=== PATIENT | female | born 1990 | race Caucasian/White ===

== ENCOUNTER → 2020-10-21 | Outpatient (CLI) | payer OTHER ==
--- NOTE | 2020-10-21 12:52 | US ---
EXAMINATION TYPE: US OB >= 14 wk fetus DATE OF EXAM: 10/21/2020 COMPARISON: None CLINICAL HISTORY: Z36 CONFIRM DATES TECHNIQUE: Transabdominal (TA) GESTATIONAL AGE / DATING Physician Established: (15 weeks/1 days) EDC: 04/13/2021 Dates by LMP: (15 weeks/1 days) EDC: 04/13/2021 Dates by First Scan: No previous this is first scan Dates by Current Scan: (15 weeks/4 days) EDC: 04/10/2021 SURVEY IUP: Single PLACENTA: Anterior PREVIA: Low Lying measuring 1.7 cm from os JACE: Too early CERVICAL LENGTH (transabdominal: norm > 3.0cm): 4.1 cm BIOMETRY PRESENTATION: Vertex LIE: Longitudinal BPD: 3.1 cm 15 weeks / 6 days HC: 11.3 cm 15 weeks / 4 days AC: 9.7 cm 15 weeks / 6 days FL: 1.7 cm 15 weeks / 0 days ESTIMATED WEIGHT IN GRAMS: 123 grams ESTIMATED WEIGHT IN LBS/OZ: 0 lbs. 4 oz. WEIGHT PERCENTAGE BASED ON ESTABLISHED DATES: 56% HC/AC: 1.17 Normal FL/AC: 17% Normal HEART RATE: 155 bpm RHYTHM: Normal Viable IUP, measurements consistent with dates. Hypoechoic uterine mass, possible fibroid, visualized measuring 1.6 x 1.2 x 1.3 cm. Low lying placenta This is not an anatomic survey. IMPRESSION: 1. Single, live intrauterine measuring 15 weeks and 4 days by sonographic criteria. 2. Low lying placenta. 3. Possible uterine leiomyoma.
== END | disposition home or self-care (01) ==
LOC: RADUSWWP 11:06
PROVIDERS: ATTEND Obstetrics & Gynecology
DX: O44.42 Low lying placenta NOS or without hemorrhage, second trimester (principal); Z3A.15 15 weeks gestation of pregnancy
CPT/HCPCS: 76805

== ENCOUNTER 2021-03-01 05:14 | Outpatient (CLI) | payer OTHER ==
[2021-03-01 05:26] LABS: Glucose,Whole Blood 144 mg/dL (75-99)
[2021-03-01] MEDS: LACTATED RINGERS 1,000 ML IV SCH ×2 (05:40→06:19)
[2021-03-01 05:50] LABS: Appearance,Urine Clear (Clear); Bacteria,Urine Rare /hpf; Bilirubin,Urine Negative (Negative); Blood,Urine Negative (Negative); Color,Urine Light Yellow; Glucose,Urine (UA) 3+ (Negative); Hyaline Casts,Urine 3 /lpf (0-2); Ketones,Urine 1+ (Negative); Leukocyte Esterase,Urine Large (Negative); Mucus,Urine Rare /hpf; Nitrite,Urine Negative (Negative); Protein,Urine Negative (Negative); RBC,Urine <1 /hpf (0-5); Specific Gravity,Urine 1.015 (1.001-1.035); Squamous Epithelial Cell,Urine 4 /hpf (0-4); Urobilinogen,Urine <2.0 mg/dL (<2.0); WBC,Urine 13 /hpf (0-5)
[2021-03-01 07:13] VITALS: BP 132/71; PULSE 68; RESP 16; TEMP 98
--- NOTE | 2021-03-01 11:52 | P.MSEPDOC ---
Presenting Problems - Arrival Data Date of Arrival on Unit: 03/01/21 Time of Arrival on Unit: 05:14 Mode of Transport: Wheelchair - Complaint OB-Reason for Admission/Chief Complaint: Possible Onset of Labor Comment: Contractions every 1 minute since 0300 Medical History - Information : 4 Para: 3 Term: 2 : 1 Abortions: Spontaneous or Elective: 0 Number of Living Children: 2 - Gestational Age Gestational Age by YONATHAN (wks/days): 33 Weeks and 6 Days - History Complications: Prior Review of Systems - Review of Systems Constitutional: No problems Breast: No problems ENT: No problems Cardiovascular: No problems Respiratory: No problems Gastrointestinal: No problems Genitourinary: No problems Musculoskeletal: No problems Neurological: No problems Skin: No problems Vital Signs - Temperature Temperature: 98 F Temperature Source: Temporal Artery Scan - Pulse Right Brachial Pulse Rate: 68 Pulse Assessment Method: Automatic Cuff - Respirations Respiratory Rate: 16 Oxygen Delivery Method: Room Air O2 Sat by Pulse Oximetry: 100 - Blood Pressure Right Arm Blood Pressure: 132/71 Blood Pressure Mean: 91 Blood Pressure Source: Automatic Cuff Medical Screen Scoring - Cervical Exam Dilation (cm): 1 Effacement (%): 0 Station: -2 Membranes: Intact - Uterine Contractions Frequency From (mins): 1 Frequency To (mins): 3 Duration From (seconds): 60 Duration To (seconds): 100 Intensity: Moderate Resting: Soft to palpation - Assessment - Baby A Baseline FHR: 135 Heart Rate - NICHD Category: Category I (Normal) Physician Notification - Physician Notified Physician Notified Date: 03/01/21 Physician Notified Time: 05:27 Physician: Kylee Lamar New Order Received: Yes - Notification Comment Comment: IV hydrate, send UA. 0626 culture urine, d/c home at second bag of LR Maternal Triage Index - Maternal Triage Index Presenting for scheduled procedure w/no complaint: No - Stat/Priority 1 Stat Priority 1: No - Urgent/Priority 2 Urgent Priority 2: Yes Provider Notified: Kylee Lamar Provider Notified Time: 05:27 Criteria Met for Priority 2: Contractions every 1-3 minutes Disposition - Disposition OB Disposition: Discharge to home, Written follow up instructions reviewed Discharge Date: 03/01/21 Discharge Time: 07:13 I agree with the RN Medical Screening Exam: Yes Case reviewed; plan agreed upon as documented in EMR&OBIX.: Yes Diagnosis: FALSE LABOR BEFORE 37 COMPLETED WEEKS OF GEST, THIRD TRI
== END 2021-03-01 07:13 | disposition home or self-care (01) ==
LOC: FBPOP 05:14
PROVIDERS: ATTEND Obstetrics & Gynecology
DX: O47.03 False labor before 37 completed weeks of gestation, third trimester (principal); Z3A.33 33 weeks gestation of pregnancy
CPT/HCPCS: 59025; 96360; 96361; 81001; 87086; G0463; 99214

== ENCOUNTER 2021-03-11 14:52 | Outpatient (CLI) | payer OTHER ==
[2021-03-11 16:23] VITALS: BP 141/70; PULSE 76; RESP 16; TEMP 97.1
--- NOTE | 2021-03-11 16:49 | US ---
EXAMINATION TYPE: US OB BPP wo non-stress DATE OF EXAM: 03/11/2021 COMPARISON: NONE CLINICAL HISTORY: variable decelerations in office. abnormal NST EXAM PERFORMED: Transabdominal (TA) BPP PARAMETERS: PRESENTATION: Vertex HEART RATE: 130 bpm RHYTHM: Normal JACE: 14.8 DIAPHRAGM IMAGED: Yes BPP SCORIN. Breathin (1 episode of breathing of 30 second duration in 30 minutes of scanning time) 2. Movement: 2 (at least 3 discrete body movements in 30 minutes) 3. Tone: 2 (1 episode of active flexion/extension of limb) 4. JACE: 2 (JACE index > 5cm) TOTAL SCORE: 8 / 8 Results given to L&D at time of exam
--- NOTE | 2021-03-11 16:51 | US ---
EXAMINATION TYPE: US OB >= 14 wk fetus DATE OF EXAM: 03/11/2021 COMPARISON: US CLINICAL HISTORY: variable delerations in office For growth and JACE TECHNIQUE: Transabdominal (TA) GESTATIONAL AGE / DATING Physician Established: (35 weeks/2 days) EDC: 04/13/2021 Dates by LMP: Unknown Dates by First Scan: (35 weeks/5 days) EDC: 04/10/2021 Dates by Current Scan: (36 weeks/2 days) EDC: 04/06/2021 SURVEY IUP: Single PLACENTA: Anterior PREVIA: No Previa JACE: 14.7 cm Normal CERVICAL LENGTH (transabdominal: norm > 3.0cm): 3.1 cm BIOMETRY PRESENTATION: Vertex BPD: 8.7 cm 35 weeks / 0 days HC: 32.3 cm 36 weeks / 4 days AC: 33.2 cm 37 weeks / 1 days FL: 7.0 cm 36 weeks / 1 days ESTIMATED WEIGHT IN GRAMS: 2963 grams ESTIMATED WEIGHT IN LBS/OZ: 6 lbs. 9 oz. WEIGHT PERCENTAGE BASED ON ESTABLISHED DATES: 82% HC/AC: 0.97 Normal FL/AC: 21 Normal HEART RATE: 128 bpm RHYTHM: Normal Results given to L&D at time of exam IMPRESSION: 1. Single intrauterine gestation estimated at 36 weeks 2 days gestation based on current ultrasound m easurements. Cardiac activity measures 128 bpm on this exam. 2. Estimated weight based on current ultrasound measurements is 2963 g
== END 2021-03-11 16:13 | disposition home or self-care (01) ==
LOC: FBPOP 14:52
PROVIDERS: ATTEND Obstetrics & Gynecology
DX: O24.419 Gestational diabetes mellitus in pregnancy, unspecified control (principal); Z3A.35 35 weeks gestation of pregnancy
CPT/HCPCS: 59025; 76805; 76819

== ENCOUNTER 2021-03-14 15:13 | Outpatient (CLI) | payer OTHER ==
[2021-03-14 16:10] VITALS: BP 129/72; PULSE 80; RESP 18; TEMP 97.8
== END 2021-03-14 16:00 | disposition home or self-care (01) ==
LOC: FBPOP 15:13
PROVIDERS: ATTEND Obstetrics & Gynecology
DX: O24.419 Gestational diabetes mellitus in pregnancy, unspecified control (principal); Z3A.35 35 weeks gestation of pregnancy
CPT/HCPCS: 59025; G0463; 99213

== ENCOUNTER 2021-04-01 10:26 | Inpatient (IN) | payer OTHER ==
[2021-04-01] MEDS ORDERED: CARBOPROST TROMETHAMINE 250 MCG/ML 1 ML AMP IM PRN (10:41)
[2021-04-01] MEDS ORDERED: LIDOCAINE 0.5% (PF) 5 MG/ML (50 ML SDV) SQ PRN (10:41)
[2021-04-01] MEDS ORDERED: TERBUTALINE 1 MG/ML VIAL SQ PRN (10:41)
[2021-04-01] MEDS ORDERED: OXYTOCIN 10 UNIT/ML 1 ML VIAL IM PRN (10:41)
[2021-04-01] MEDS ORDERED: METHYLERGONOVINE 0.2 MG/ML 1 ML AMP IM PRN (10:41)
[2021-04-01] MEDS ORDERED: OXYTOCIN 30 UNITS/500 ML NS 30 UNIT in SALINE 1 500ML.BAG IV SCH (10:45)
[2021-04-01 11:03] LABS: Glucose,Whole Blood 93 mg/dL (75-99)
--- NOTE | 2021-04-01 11:19 | US ---
EXAMINATION TYPE: US OB >= 14 wk fetus DATE OF EXAM: 04/01/2021 COMPARISON: 03/11/2021 CLINICAL HISTORY: 31-year-old female Position. Patient in labor needed position, TECHNIQUE: Transabdominal (TA) FINDINGS: GESTATIONAL AGE / DATING Physician Established: (38 weeks/2 days) EDC: 04/13/2021 SURVEY BIOMETRY PRESENTATION: cephalic LIE: Longitudinal HEART RATE: 145 bpm RHYTHM: Normal Tech findings reported to patient's RN at exam's end. IMPRESSION: Cephalic presentation.
[2021-04-01] MEDS: LACTATED RINGERS 1,000 ML IV SCH ×3 (11:26→15:53)
[2021-04-01] MEDS ORDERED: ROPIVACAINE 100 MG, fentaNYL (PF). 200 MCG in SODIUM CHLORIDE 0.9% 76 ML EPIDURAL ONE (11:49)
[2021-04-01 11:57] LABS: Basophils % (A) 0 %; Eosinophils # (A) 0.1 k/uL (0-0.7); Eosinophils % (A) 1 %; HCT 36.1 % (34.0-46.0); HGB 12.5 gm/dL (11.4-16.0); Lymphocytes # (A) 1.8 k/uL (1.0-4.8); Lymphocytes % (A) 17 %; MCH 30.4 pg (25.0-35.0); MCHC 34.5 g/dL (31.0-37.0); MCV 88.3 fL (80.0-100.0); Mean Platelet Volume 9.7; Monocytes # (A) 0.4 k/uL (0-1.0); Monocytes % (A) 4 %; Neutrophils % (A) 75 %; Platelet Count 190 k/uL (150-450); WBC 10.6 k/uL (3.8-10.6)
[2021-04-01 12:07] LABS: Glucose,Whole Blood 89 mg/dL (75-99)
[2021-04-01 12:28] LABS: ALT 10 U/L (4-34); AST 17 U/L (14-36); African American GFR (CKD) >90 (>60 ml/min/1.73 sqM); Blood Urea Nitrogen 12 mg/dL (7-17); LDH 439 U/L (313-618); Non-African American GFR(CKD) >90 (>60 ml/min/1.73 sqM); Uric Acid 3.4 mg/dL (3.7-7.4)
[2021-04-01 12:48] LABS: Amphetamine Screen,Urine Not Detected (NotDetected); Barbiturate Screen,Urine Not Detected (NotDetected); Benzodiazepines Screen,Urine Not Detected (NotDetected); Cocaine Screen,Urine Not Detected (NotDetected); Methadone Screen, Urine Not Detected (NotDetected); Opiate Screen,Urine Not Detected (NotDetected); Oxycodone Screen, Urine Not Detected (NotDetected); Phencyclidine Screen,Urine Not Detected (NotDetected); Tricyclic Antidepressant,Urine Not Detected (NotDetected); Urn Cannabinoid Scrn Not Detected (NotDetected)
[2021-04-01 13:19] LABS: Glucose,Whole Blood 82 mg/dL (75-99)
[2021-04-01 14:14] LABS: Glucose,Whole Blood 78 mg/dL (75-99)
[2021-04-01 15:15] LABS: Glucose,Whole Blood 71 mg/dL (75-99)
[2021-04-01 16:21] LABS: Glucose,Whole Blood 77 mg/dL (75-99)
[2021-04-01 17:18] LABS: Glucose,Whole Blood 74 mg/dL (75-99)
[2021-04-01] MEDS ORDERED: diphenhydrAMINE 25 MG CAP PO PRN (18:15)
[2021-04-01] MEDS ORDERED: diphenhydrAMINE 50 MG CAP PO PRN (18:15)
[2021-04-01] MEDS ORDERED: HYDROCORTISONE 2.5% RECTAL CREAM 30 GM TUBE RECTAL PRN (18:15)
[2021-04-01] MEDS ORDERED: ZOLPIDEM 5 MG TAB PO PRN (18:15)
[2021-04-01] MEDS ORDERED: BENZOCAINE/MENTHOL SPRAY 1 GM/SPRAY AEROSOL TOPICAL PRN (18:15)
[2021-04-01] MEDS ORDERED: diphenhydrAMINE 50 MG/ML 1 ML VIAL IVP PRN ×2 (18:15)
[2021-04-01] MEDS ORDERED: SIMETHICONE 80 MG CHEWABLE PO PRN (18:15)
[2021-04-01] MEDS ORDERED: LANOLIN CREAM 5 GM TUBE TOPICAL PRN (18:15)
[2021-04-01] MEDS ORDERED: ACETAMINOPHEN TAB 325 MG TAB PO PRN (18:15)
--- NOTE | 2021-04-01 18:32 | P.HPOB ---
History of Present Illness H&P Date: 04/01/21 Chief Complaint: Intrauterine term: GDM A2 If any is a 31-year-old G7 P 3 with 3 miscarriages and one delivery. She is admitted for active labor. It is noted that she has mildly elevated blood pressure on presentation and preeclampsia labs were ordered but have all returned normal. Pertinent labs are seen him for A+ blood type, Rh and it was negative, rubella is immune, hepatitis B surface antigen is negative group B strep was negative her Precis course has been, complicated by gestational diabetes she is A2 and was on insulin. Her sugars had been controlled with the insulin. We have been comanaging her with maternal- medicine she's been d oing by physical profiles and nonstress tests. She had been measuring above the 90th percentile at 32 weeks and the plan was to likely deliver her before 39 weeks or around 39 weeks to reduce her dystocia risk. She was scheduled for delivery on 04/08 per maternal medicine recommendation they had no significant concerns for recommending section with growth stabilizing in the latter part of the . Ultrasound at 36 weeks showing an 82nd percentile growth. She is aware there is still some risk of shoulder dystocia but since she is before 39 weeks and there has not been any ultrasounds that have shown that the baby's expect weight more than 4000 g we'll plan sponta neous vaginal delivery. She does have prior weight of greater than 8 pounds as well. With her in active labor and with difficulty in measuring gross as baby is as low as the baby is no ultrasound for growth will be done today as it could be either falsely elevated falsely low. She does have an understanding of risks of shoulder dystocia with diabetes and macrosomia but again the last ultrasound did not show macrosomia and she is not been measuring on her abdominal exams for macrosomia and again with a previous delivery of a baby that weighed over 8 pounds plan with be to trial of labor. A category 1 tracing is noted. She is jayna every 2-3 minutes and an epidural was placed for analgesia. Past Medical History Past Medical History: Diabetes Mellitus Additional Past Medical History / Comment(s): gestational diabetes History of Any Multi-Drug Resistant Organisms: None Reported Past Surgical History: Appendectomy Additional Past Surgical History / Comment(s): carpal tunnel surgery Past Psychological History: No Psychological Hx Reported Smoking Status: Former smoker Past Alcohol Use History: None Reported Past Drug Use History: Marijuana Additional Drug Use History / Comment(s): prior to - Past Family History Mother History Unknown: Yes Medications and Allergies Home Medications Medication Instructions Recorded Confirmed Type Insulin Glulisine [Apidra Solostar 10 unit SQ TID 03/01/21 04/01/21 History Pen] Allergies Allergy/AdvReac Type Severity Reaction Status Date / Time No Known Allergies Allergy Verified 03/11/21 15:03 Exam Osteopathic Statement: *. No significant issues noted on an osteopathic structural exam other than those noted in the History and Physical/Consult. Vital Signs Temp Pulse Resp BP Pulse Ox 04/01/21 11:09 97.1 F L 79 18 139/92 100 Intake and Output 04/01/21 04/01/21 04/01/21 06:59 14:59 22:59 Output Total 100 Balance -100 Output: Urine 100 Other: Weight 91.626 kg - OBG Physical Exam Breast: both: normal (no masses) Abdomen: bowel sounds normal, no diffuse tenderness, no bruit present, no guarding noted, no hepatomegaly, no splenomegaly, no mass Vulva: both: normal Vagina: normal moisture, no discharge Cervix: no lesion, no discharge Uterus: normal size, normal contour Adnexa: both: normal Anus/Rectum: normal perianal skin, no rectal mass, no hemorrhoids, heme negative Results Result Diagrams: 04/01/21 10:45 04/01/21 11:46 Abnormal Lab Results - Last 24 Hours (Table) 04/01/21 04/01/21 04/01/21 Range/Units 10:45 10:45 11:46 Neutrophils # 8.0 H (1.3-7.7) k/uL POC Glucose (mg/dL) (75-99) mg/dL Hemoglobin A1c 6.4 H (4.0-6.0) % Uric Acid 3.4 L (3.7-7.4) mg/dL 04/01/21 04/01/21 Range/Units 15:13 17:17 Neutrophils # (1.3-7.7) k/uL POC Glucose (mg/dL) 71 L 74 L (75-99) mg/dL Hemoglobin A1c (4.0-6.0) % Uric Acid (3.7-7.4) mg/dL
[2021-04-01] MEDS: IBUPROFEN 600 MG TAB PO SCH (18:39)
--- NOTE | 2021-04-01 18:39 | P.PROBDLV ---
Vaginal Delivery Note - . Vaginal Delivery Note: Tami progressed to complete and pushing with spontaneous vaginal delivery of a viable female over an intact perineum. Following delivery of the head there was some retraction of the head down onto the perineum indicating likely shoulder dystocia. It is noted and there was concern on my behalf since she had been dilated to 9 for a very long time that there is this might be a possibility, however she did ultimately rapidly push the baby down and out in less than 5 minutes. Upon recognizing potential shoulder dystocia patient was placed in a very steep Kaiden position and head of bed was lowered some. position was left occiput anterior. With gentle downward traction there was no movement of the anterior shoulder below the pubic symphysis therefore I did place my hand in the vagina to affect a posterior arm delivery. I was unable to pass the arm in front of the baby's face and therefore I grasp in underneath the axilla and rotated the fetus in a counterclockwise fashion actually as using my office hand to assist in rotating the anterior shoulder below the pubic bone once the anterior shoulder was cleared of the pubic bone we were able to bring the baby in deep into the vagina and then delivered. Baby was immediately placed on mother's abdomen where the cord was clamped cut usual fashion following bulb suction of mouth and nares. Nursery personnel was present and assumed immediate care for the baby. Placenta was then delivered intact Pitocin was added to the IV. scores were 8 and 9 at one and 5 minutes respectively and the weight was 8 lbs. 2 oz. Sleeve there was some decrease in amount of the right arm which would have been the anterior shoulder. I did speak with both the mother and the father and explained that there is possibility that there could've been a clavicle injury or that just her some swelling from the fact the baby was stuck under the anterior pubic bone but almost immediately after the baby began to move the right arm freely and appears to have no significant injury at this time I did speak with the screen room operator and they will fully evaluate the arm and verified no other issues. In palpation of the clavicle the nursing personnel cannot palpate a fracture and I did not feel her hearing fracture but certainly that is possibility. Mother and baby are currently stable following delivery.
[2021-04-01] MEDS: SENNOSIDES-DOCUSATE SODIUM 1 EACH TAB PO SCH (21:21)
[2021-04-02] MEDS: IBUPROFEN 600 MG TAB PO SCH ×3 (02:06→15:46)
[2021-04-02] MEDS: SENNOSIDES-DOCUSATE SODIUM 1 EACH TAB PO SCH (08:44)
--- NOTE | 2021-04-02 10:32 | P.DS ---
Providers Date of admission: 04/01/21 10:40 Expected date of discharge: 04/02/21 Attending physician: Rashid Mancera Primary care physician: Stated None - Discharge Diagnosis(es) (1) Normal vaginal delivery Current Visit: Yes Status: Acute Hospital Course: Patient was admitted for induction of labor due to gestational hypertension. She underwent a normal vaginal delivery. course was uncomplicated. She denies nausea, vomiting, chest pain, shortness of breath or any calf pain. Her blood pressures are normal. Patient will be discharged home day #1 in stable condition to follow-up with Dr. Menendez in 6 weeks. Plan - Discharge Summary New Discharge Prescriptions: New Ibuprofen [Motrin] 600 mg PO Q6H #30 tab No Action Insulin Glulisine [Apidra Solostar Pen] 10 unit SQ TID Discharge Medication List Insulin Glulisine [Apidra Solostar Pen] 10 unit SQ TID 03/01/21 [History] Ibuprofen [Motrin] 600 mg PO Q6H #30 tab 04/02/21 [Rx] Follow up Appointment(s)/Referral(s): Rashid Mancera DO [Doctor of Osteopathic Medicine] - 05/11/21 3:00 pm Discharge Disposition: HOME SELF-CARE
[2021-04-02 15:57] VITALS: BP 135/85; PULSE 85; RESP 15; TEMP 98.1
== END 2021-04-02 18:51 | disposition home or self-care (01) | DRG 807 ==
LOC: FBPOP 10:26 → 4FBP 10:40
PROVIDERS: ADMIT Obstetrics & Gynecology; ATTEND Obstetrics & Gynecology
PROC: 10E0XZZ Delivery of Products of Conception, External Approach (ICD-10-PCS; principal; 2021-04-01)
PROC: 3E033VJ Introduction of Other Hormone into Peripheral Vein, Percutaneous Approach (ICD-10-PCS; 2021-04-01)
DX: O60.14X0 Preterm labor third trimester with preterm delivery third trimester, not applicable or unspecified (principal); Z37.0 Single live birth; O13.4 Gestational [pregnancy-induced] hypertension without significant proteinuria, complicating childbirth; O24.424 Gestational diabetes mellitus in childbirth, insulin controlled; O26.893 Other specified pregnancy related conditions, third trimester; Z67.41 Type O blood, Rh negative; Z3A.36 36 weeks gestation of pregnancy; Z87.891 Personal history of nicotine dependence; O66.0 Obstructed labor due to shoulder dystocia; Z87.59 Personal history of other complications of pregnancy, childbirth and the puerperium
CPT/HCPCS: 59025; 76815; 80306; 82565; 83036; 83615; 84450; 84460; 84520; 84550; 85025; 86850; 86900; 86901; 99213